=== PATIENT | female | born 1960 | race Caucasian/White ===

== ENCOUNTER → 2023-03-26 09:43 | Outpatient (CLI) | payer OTHER, SELFPAY ==
--- NOTE | 2023-03-26 09:47 | DI.RAD.S_ITS ---
PROCEDURE: XR TOE LT MIN 2V INDICATIONS: Left toe injury TECHNIQUE: 3 views of the 5th toe(s) acquired. COMPARISON: None. FINDINGS: Bones: Comminuted fracture of the 5th distal phalanx with mild displacement. No definite intra-articular extension is seen. Soft tissues: No suspicious soft tissue densities. Soft tissue swelling of the 5th digit. IMPRESSION: Comminuted fracture of the 5th distal phalanx with mild displacement. Dictated by: Cristian Vásquez M.D. on 03/26/2023 at 11:15 Approved by: Cristian Vásquez M.D. on 03/26/2023 at 11:16
== END ==
PROVIDERS: Referring Provider Nurse Practitioner Family; Visit Provider Nurse Practitioner Family
DX: S92.532A Displaced fracture of distal phalanx of left lesser toe(s), initial encounter for closed fracture (principal); X58.XXXA Exposure to other specified factors, initial encounter
CPT/HCPCS: 73660